=== PATIENT | male | born 1960 | race Caucasian/White ===

== ENCOUNTER 2017-06-22 07:31 | Outpatient (CLI) | payer OTHER ==
[~2017-06-22 07:31] MED LIST: ALPR0.254 PO; ATOR80TA76 PO; HYDR1TAB PO; METH4TAB PO; MONT10TA24 PO; OMEP40CA36 PO; PANT40TA2 PO; ROSU20TA PO; VALA500T PO
--- NOTE | 2017-06-22 09:17 | Diagnostic Imaging Report ---
PROCEDURE: MRI right joint upper extremity without contrast. Technique: Multiplanar, multisequence MR imaging of the right shoulder was performed without contrast. Comparison: None available. Indication: Chronic right shoulder pain which is progressively worsening. Findings: Rotator cuff: Supraspinatus and infraspinatus tendinopathy. There is low-grade focal partial-thickness interstitial tear of the conjoint insertional fibers of the supraspinatus and infraspinatus. The tear measures approximately 1 cm in the AP dimension. No significant tendon retraction. There is no associated atrophy of the supraspinatus or infraspinatus. The subscapularis has mild tendinopathy without superimposed tear. The teres minor is normal. Glenoid labrum: The anterior inferior labrum has has heterogeneous intrinsic signal and a somewhat truncated morphology which suggests tear. However, this is suboptimally evaluated on non-arthrogram imaging and due to patient motion artifact. Remainder of the glenoid labrum appears grossly normal on non-arthrogram imaging. Long head of biceps: Long head of biceps is normally positioned within the bicipital groove. The intracapsular segment is likely intact allowing for motion artifact. Bones and cartilage: Humeral head is normal in morphology without fracture or focal osseous lesion. No glenohumeral chondromalacia. The acromioclavicular joint is in normal alignment with degenerative capsular hypertrophy and degenerative subchondral edema on both sides of the joint. Soft tissues: No glenohumeral joint effusion. No MRI findings to suggest adhesive capsulitis. No fluid or inflammatory like signal within the subacromial/subdeltoid space to indicate bursitis. IMPRESSION: 1. Supraspinatus and infraspinatus tendinopathy with a superimposed low-grade partial-thickness interstitial tear of the conjoint insertional fibers. No rotator cuff muscle atrophy. 2. Potential tear of the anterior inferior glenoid labrum, although evaluation of the glenoid labrum is limited on this examination due to patient motion artifact and lack of intra-articular contrast. If the patient has symptoms of recurrent anterior instability, MR arthrogram could be performed to assess the labrum. 3. Osteoarthritis of the acromioclavicular joint has a moderate amount of bone marrow edema on both sides, which is likely degenerative in nature. Clinical correlation for focal tenderness of the AC joint is recommended. Dictated by: Dictated on workstation # [id number]
== END 2017-06-22 09:15 | disposition home or self-care (01) ==
LOC: RAD 07:31
PROVIDERS: ATTEND Orthopaedic Surgery
DX: S43.421A Sprain of right rotator cuff capsule, initial encounter (principal); M75.81 Other shoulder lesions, right shoulder; M19.011 Primary osteoarthritis, right shoulder; X58.XXXA Exposure to other specified factors, initial encounter; Y99.8 Other external cause status
CPT/HCPCS: 73221

== ENCOUNTER → 2018-02-11 | Outpatient (CLI) | payer BC ==
[2018-02-11 11:52] LABS: BUN/CREATININE RATIO 17; CREATININE SERUM 0.87 MG/DL (0.60-1.30); GFR ESTIMATED > 60
--- NOTE | 2018-02-11 12:11 | Diagnostic Imaging Report ---
INDICATION: Cough COMPARISON: None FINDINGS: Two views of the chest were obtained. Heart size is normal. The pulmonary vessels appear unremarkable. There is no pneumothorax, mediastinal widening or pleural fluid. The lungs are clear. The osseous structures appear unremarkable. IMPRESSION: Negative chest Dictated by: Dictated on workstation # [id number]
== END ==
LOC: RAD 11:11
PROVIDERS: ATTEND Otolaryngology Otolaryngology/Facial Plastic Surgery
DX: J38.5 Laryngeal spasm (principal); R05 Cough
CPT/HCPCS: 36415; 71046; 82565; 84520

== ENCOUNTER → 2018-02-15 | Outpatient (CLI) | payer BC, OTHER ==
[~2018-02-15] MED LIST changes: +IOHEXOL 350 MG/ML 100 ML (OMNIPAQUE 350) VIAL IV ONE; +NS 250 ML (IVPB) BAG IV ONE
--- NOTE | 2018-02-15 08:43 | Diagnostic Imaging Report ---
PROCEDURE: CT neck soft tissue with contrast. TECHNIQUE: Multiple contiguous axial images were obtained through the neck after the administration of contrast. INDICATION: Laryngeal spasm and cough There is mild prominence of adenoidal tissue and tonsillar pillars, however, no asymmetry or focal mass is identified. The airway appears to be widely patent. Larynx is also symmetric without evidence of lesion. Visualized trachea has a normal appearance. There is no evidence of thyroid gland abnormality. Submandibular salivary glands and parotid glands are unremarkable with fatty infiltration of the parotids. Visualized brain base is unremarkable. There is mild straightening of normal cervical lordosis without evidence of acute cervical spinal abnormality. IMPRESSION: No evidence of mass or obstructing lesion along the airway. Adenoidal and tonsillar tissue is prominent which may be due to lymphoid hyperplasia. Dictated by: Dictated on workstation # [id number]
== END ==
LOC: RAD 07:51
PROVIDERS: ATTEND Otolaryngology Otolaryngology/Facial Plastic Surgery
DX: J38.5 Laryngeal spasm (principal)
CPT/HCPCS: 70491

== ENCOUNTER → 2018-03-01 | Outpatient (CLI) | payer BC ==
[~2018-03-01] MED LIST changes: +FAMO-119 PO; +FENO145T2 PO; +FEXO1TAB40 PO; +FLUT9.9S NSEACH; +HYDR-3812 PO; +ICOS1CAP PO; -IOHEXOL 350 MG/ML 100 ML (OMNIPAQUE 350) VIAL IV ONE; -NS 250 ML (IVPB) BAG IV ONE; +PANT40TA3 PO; +RANI150T46 PO; +RT-ALBUTEROL SULF 2.5 MG/3 ML PRE-MIX VIAL INH ONE; +TADA5TAB2 PO; +UBID200C16 PO; +[UNRECOGNIZED DRUG - CODE] PO
== END ==
LOC: RT 11:18
PROVIDERS: ATTEND Otolaryngology Otolaryngology/Facial Plastic Surgery
DX: R05 Cough (principal); J38.5 Laryngeal spasm
CPT/HCPCS: 94060; 94726; 94729

== ENCOUNTER → 2018-03-02 | Outpatient (CLI) | payer BC ==
[~2018-03-02] MED LIST changes: -RT-ALBUTEROL SULF 2.5 MG/3 ML PRE-MIX VIAL INH ONE
== END ==
LOC: LAB 13:32
PROVIDERS: ATTEND Nurse Practitioner Family
DX: R05 Cough (principal)
CPT/HCPCS: 36415; 87798

== ENCOUNTER → 2018-03-04 | Outpatient (CLI) | payer BC ==
--- NOTE | 2018-03-04 11:03 | Diagnostic Imaging Report ---
PROCEDURE: CT chest without contrast. TECHNIQUE: Multiple contiguous axial images were obtained through the chest without the use of intravenous contrast. INDICATION: Chronic cough, congestion and throat spasms. Comparison limited to overlapped images obtained at an abdominal CT 01/25/2013. Lower cervical trachea and thoracic airway widely patent. The lungs are clear and well expanded. There is no infiltrate, failure, effusion or pneumothorax. There are no findings of edema. There is no lung mass. There is no thoracic lymphadenopathy. No evidence for an aneurysm. No acute soft tissue nor osseous chest wall pathology. There is no evidence for aspiration or other etiology of pneumonia. No bronchiectasis or air cyst. The visualized upper abdomen appeared nonacute. IMPRESSION: This is an unremarkable noncontrast enhanced CT chest. Dictated by: Dictated on workstation # [id number]
== END ==
LOC: RAD 10:11
PROVIDERS: ATTEND Otolaryngology Otolaryngology/Facial Plastic Surgery
DX: J38.5 Laryngeal spasm (principal); J30.2 Other seasonal allergic rhinitis; K21.9 Gastro-esophageal reflux disease without esophagitis; J39.2 Other diseases of pharynx
CPT/HCPCS: 71250

== ENCOUNTER → 2018-03-04 | Outpatient (CLI) | payer BC ==
--- NOTE | 2018-03-04 11:28 | Diagnostic Imaging Report ---
PROCEDURE: CT neck soft tissue without contrast. TECHNIQUE: Multiple contiguous axial images were obtained through the neck without the use of intravenous contrast. INDICATION: Chronic cough for one month and throat spasm. COMPARISON: Correlation is made with recent CT neck study from 02/15/2018. FINDINGS: Visualized intracranial structures are unremarkable. Posterior nasopharynx, oropharynx and larynx are unremarkable. Epiglottis is unremarkable. No thyroid mass is detected. The submandibular and parotid glands are symmetric bilaterally. The airway appears to be patent. Retropharyngeal tissues are unremarkable. No cervical adenopathy is detected. IMPRESSION: Unremarkable noncontrast CT of the neck. Dictated by: Dictated on workstation # [id number]
== END ==
LOC: RAD 10:52
PROVIDERS: ATTEND Otolaryngology Otolaryngology/Facial Plastic Surgery
DX: J38.6 Stenosis of larynx (principal); R05 Cough
CPT/HCPCS: 70490

== ENCOUNTER 2018-04-19 09:42 | Outpatient (CLI) | payer BC ==
[~2018-04-19] VITALS: Ht 180.3 cm; Wt 102.1 kg
[~2018-04-19 09:42] MED LIST changes: -FAMO-119 PO; -FENO145T2 PO; -FEXO1TAB40 PO; -FLUT9.9S NSEACH; -HYDR-3812 PO; -ICOS1CAP PO; -PANT40TA3 PO; -RANI150T46 PO; -TADA5TAB2 PO; -UBID200C16 PO; -[UNRECOGNIZED DRUG - CODE] PO
[2018-04-20] MEDS ORDERED: UBID200C16 PO (08:03)
[2018-04-20] MEDS ORDERED: ICOS1CAP PO (08:03)
[2018-04-20] MEDS ORDERED: FLUT9.9S NSEACH (08:03)
[2018-04-20] MEDS ORDERED: [UNRECOGNIZED DRUG - CODE] PO (08:03)
[2018-04-20] MEDS ORDERED: PANT40TA3 PO (08:03)
[2018-04-20] MEDS ORDERED: FAMO-119 PO (08:03)
[2018-04-20] MEDS ORDERED: RANI150T46 PO (08:03)
[2018-04-20] MEDS ORDERED: TADA5TAB2 PO (08:03)
[2018-04-20] MEDS ORDERED: FENO145T2 PO (08:03)
[2018-04-20] MEDS ORDERED: FEXO1TAB40 PO (08:03)
== END 2018-04-19 16:00 ==
LOC: PREOP 09:42
PROVIDERS: ATTEND Otolaryngology Otolaryngology/Facial Plastic Surgery
DX: Z01.818 Encounter for other preprocedural examination (principal); R04.0 Epistaxis

== ENCOUNTER 2018-04-22 06:30 | Day surgery (SDC) | payer BC ==
[~2018-04-22] VITALS: Ht 180.3 cm; Wt 102.1 kg
[~2018-04-22 06:30] MED LIST changes: +FAMO-119 PO; +FENO145T2 PO; +FEXO1TAB40 PO; +FLUT9.9S NSEACH; +ICOS1CAP PO; +PANT40TA3 PO; +RANI150T46 PO; +TADA5TAB2 PO; +UBID200C16 PO; +[UNRECOGNIZED DRUG - CODE] PO
[2018-04-22 06:50] VITALS: BP 136/97
[2018-04-22 07:13] LABS: BASOPHILS % (AUTO) 0 % (0-10); EOSINOPHILS # (AUTO) 0.2 10^3/uL (0.0-0.3); EOSINOPHILS % (AUTO) 1 % (0-10); HEMATOCRIT 50 % (40-54); HEMOGLOBIN 17.2 G/DL (13.3-17.7); LYMPHOCYTES # (AUTO) 4.8 X 10^3 (1.0-4.0); LYMPHOCYTES % (AUTO) 44 % (12-44); MEAN CORPUSCULAR HEMOGLOBIN 32 PG (25-34); MEAN CORPUSCULAR HGB CONC 35 G/DL (32-36); MEAN CORPUSCULAR VOLUME 91 FL (80-99); MEAN PLATELET VOLUME 11.2 FL (7.4-10.4); MONOCYTES # (AUTO) 0.9 X 10^3 (0.0-1.0); MONOCYTES % (AUTO) 8 % (0-12); NEUTROPHILS % (AUTO) 46 % (42-75); PLATELET COUNT 162 10^3/uL (130-400); RED BLOOD COUNT 5.44 10^6/uL (4.35-5.85); RED CELL DISTRIBUTION WIDTH 15.1 % (10.0-14.5); WHITE BLOOD COUNT 10.9 10^3/uL (4.3-11.0)
[2018-04-22] MEDS: LACTATED RINGERS 1,000 ML IV PRN ×2 (07:15→08:45)
[2018-04-22] MEDS ORDERED: FAMOTIDINE 20MG/2ML IV (PEPCID) ONE (07:31)
[2018-04-22 07:32] LABS: BUN/CREATININE RATIO 22; CALCIUM 9.6 MG/DL (8.5-10.1); CARBON DIOXIDE 20 MMOL/L (21-32); CHLORIDE 106 MMOL/L (98-107); CREATININE SERUM 0.83 MG/DL (0.60-1.30); GFR ESTIMATED > 60; GLUCOSE 95 MG/DL (70-105); POTASSIUM 4.1 MMOL/L (3.6-5.0); SODIUM 139 MMOL/L (135-145)
[2018-04-22] MEDS ORDERED: FAMOTIDINE 20MG/2ML IV (PEPCID) IV ONE (07:45)
[2018-04-22] MEDS ORDERED: COCAINE HCL 4% 2 ML SYR ONE (07:46)
[2018-04-22] MEDS ORDERED: BSS 15 ML ONE (07:46)
[2018-04-22] MEDS ORDERED: LIDOCAINE/EPI 1%-1:200,000 (XYLOCAINE) 10 ML VIAL ONE (07:46)
[2018-04-22] MEDS ORDERED: PHENYLEPHRINE 0.5% NASAL SPR (NEO-SYNEPHRINE) REG ONE (07:46)
[2018-04-22] MEDS ORDERED: fentaNYL INJECTION 100 MCG/2 ML AMP ONE (07:56)
[2018-04-22] MEDS ORDERED: MIDAZOLAM 2 MG/2 ML (VERSED) VIAL ONE (07:57)
[2018-04-22] MEDS ORDERED: MUPIROCIN 2% OINT 22 GM (BACTROBAN) TUBE ONE (08:01)
--- NOTE | 2018-04-22 08:17 | Progress Note-Pre Operative ---
Pre-Operative Progress Note H&P Reviewed The H&P was reviewed, patient examined and no changes noted. Date Seen by Provider: Apr 22, 2018 Time Seen by Provider: 07:30 Date H&P Reviewed: Apr 22, 2018 Time H&P Reviewed: 07:30 Pre-Operative Diagnosis: Recurrent Right Posterior Epistaxis MICHAEL GEORGE MD Apr 22, 2018 8:17 am
[2018-04-22] MEDS ORDERED: MEPERIDINE (DEMEROL) INJ 50 MG/ML IVP PRN (08:45)
[2018-04-22] MEDS ORDERED: morphine INJ 10 MG/ML 1ML (SYR OR VIAL) IVP PRN (08:45)
[2018-04-22] MEDS ORDERED: ONDANSETRON 4 MG/2 ML (SDV) Z0FRAN IVP PRN (08:45)
[2018-04-22] MEDS ORDERED: D5 1/2 NS W/KCL 20 MEQ/L 1,000 ML IV SCH (09:03)
--- NOTE | 2018-04-22 09:03 | Progress Note-Post Operative ---
Post-Operative Progess Note Surgeon (s)/Wet Process Miller Head Assistant (s) Surgeon MICHAEL GEORGE MD Wet Process Miller Head Assistant n/a Pre-Operative Diagnosis Recurrent Right Posterior Epistaxis Post-Operative Diagnosis same Post-Op Procedure Note Date of Procedure: Apr 22, 2018 Name of Procedure Performed: Endoscopic Repair of Right Posterior Epistaxis Description & Findings Description and Findings: n/a Anesthesia Type get Estimated Blood Loss minimal Packing none. Specimen(s) collected/removed none MICHAEL GEORGE MD Apr 22, 2018 9:03 am
[2018-04-22] MEDS ORDERED: HYDROcodone/APAP 5 MG/325 MG (LORTAB) TAB PO PRN (09:15)
[2018-04-22] MEDS ORDERED: ACETAMINOPHEN 325 MG TABLET/CAPLET (TYLENOL) PO PRN (09:15)
[2018-04-22] MEDS ORDERED: PHENYLEPHRINE 0.5% NASAL SPR (NEO-SYNEPHRINE) REG PRN (09:15)
[2018-04-22] MEDS ORDERED: HYDR-3812 PO (09:33)
[2018-04-22 09:55] VITALS: BP 145/69
[2018-04-22 10:25] VITALS: BP 125/77
[2018-04-22 10:30] VITALS: BP 125/77
== END 2018-04-22 10:40 | disposition home or self-care (01) ==
LOC: SDC 06:30
PROVIDERS: ATTEND Otolaryngology Otolaryngology/Facial Plastic Surgery
DX: R04.0 Epistaxis (principal); G47.33 Obstructive sleep apnea (adult) (pediatric); Z79.899 Other long term (current) drug therapy
CPT/HCPCS: 36415; 80048; 85025; 87081; 93005

== ENCOUNTER 2018-05-06 12:52 | Outpatient (RCR) | payer BC ==
[~2018-05-06 12:52] MED LIST changes: +HYDR-3812 PO
== END 2018-05-13 11:33 | disposition home or self-care (01) ==
PROVIDERS: ATTEND Otolaryngology
DX: J38.3 Other diseases of vocal cords (principal); J38.7 Other diseases of larynx; R05 Cough

== ENCOUNTER → 2020-01-30 | Outpatient (CLI) | payer BC ==
[~2020-01-30] MED LIST changes: +ACHD5005 PO; -HYDR-3812 PO; -MONT10TA24 PO; +MONT10TA26 PO; +OMEP40CA27 PO; -OMEP40CA36 PO; +RANI-613 PO; -RANI150T46 PO; -ROSU20TA PO; +ROSU20TA2 PO; -VALA500T PO; +VALA500T7 PO
[2020-01-30 13:20] LABS: BASOPHILS % (AUTO) 0 % (0-10); EOSINOPHILS % (AUTO) 0 % (0-10); HEMATOCRIT 49 % (40-54); HEMOGLOBIN 16.6 G/DL (13.3-17.7); LYMPHOCYTES # (AUTO) 6.8 X 10^3 (1.0-4.0); LYMPHOCYTES % (AUTO) 56 % (12-44); MEAN CORPUSCULAR HEMOGLOBIN 31 PG (25-34); MEAN CORPUSCULAR HGB CONC 34 G/DL (32-36); MEAN CORPUSCULAR VOLUME 92 FL (80-99); MEAN PLATELET VOLUME 11.3 FL (7.4-10.4); MONOCYTES # (AUTO) 0.5 X 10^3 (0.0-1.0); MONOCYTES % (AUTO) 4 % (0-12); NEUTROPHILS # (AUTO) 4.8 X 10^3 (1.8-7.8); NEUTROPHILS % (AUTO) 39 % (42-75); PLATELET COUNT 132 10^3/uL (130-400); RED CELL DISTRIBUTION WIDTH 14.6 % (10.0-14.5); WHITE BLOOD COUNT 12.2 10^3/uL (4.3-11.0)
[2020-01-30 14:02] LABS: ATYPICAL LYMPHOCYTES 15 %; LYMPHOCYTES % (MANUAL) 36 %; MONOCYTES % (MANUAL) 2 %; NEUTROPHILS % (MANUAL) 47 %
[2020-01-30 14:03] LABS: RBC MORPH NORMAL; SMUDGE CELLS MOD
== END ==
LOC: LAB 13:00
PROVIDERS: ATTEND Family Medicine
DX: D72.829 Elevated white blood cell count, unspecified (principal)
CPT/HCPCS: 36415; 85007; 85027

== ENCOUNTER 2020-03-14 09:16 | Outpatient (RCR) | payer BC ==
[2020-02-28 13:59] LABS: BASOPHILS % (AUTO) 0 % (0-10); EOSINOPHILS # (AUTO) 0.1 10^3/uL (0.0-0.3); EOSINOPHILS % (AUTO) 1 % (0-10); HEMATOCRIT 49 % (40-54); HEMOGLOBIN 16.5 G/DL (13.3-17.7); LYMPHOCYTES # (AUTO) 7.1 X 10^3 (1.0-4.0); LYMPHOCYTES % (AUTO) 58 % (12-44); MEAN CORPUSCULAR HEMOGLOBIN 31 PG (25-34); MEAN CORPUSCULAR HGB CONC 34 G/DL (32-36); MEAN CORPUSCULAR VOLUME 92 FL (80-99); MEAN PLATELET VOLUME 11.1 FL (7.4-10.4); MONOCYTES # (AUTO) 0.6 X 10^3 (0.0-1.0); MONOCYTES % (AUTO) 5 % (0-12); NEUTROPHILS # (AUTO) 4.5 X 10^3 (1.8-7.8); NEUTROPHILS % (AUTO) 37 % (42-75); PLATELET COUNT 151 10^3/uL (130-400); RED CELL DISTRIBUTION WIDTH 14.1 % (10.0-14.5); WHITE BLOOD COUNT 12.3 10^3/uL (4.3-11.0)
[2020-02-28 14:23] LABS: ALANINE AMINOTRANSFERASE 43 U/L (0-55); ALBUMIN 4.5 GM/DL (3.2-4.5); ALKALINE PHOSPHATASE 47 U/L (40-136); BILIRUBIN,TOTAL 0.6 MG/DL (0.1-1.0); BUN/CREATININE RATIO 14; CALCIUM 9.6 MG/DL (8.5-10.1); CARBON DIOXIDE 23 MMOL/L (21-32); CHLORIDE 107 MMOL/L (98-107); CREATININE SERUM 1.19 MG/DL (0.60-1.30); GFR ESTIMATED > 60; GLUCOSE 123 MG/DL (70-105); POTASSIUM 4.1 MMOL/L (3.6-5.0); SODIUM 138 MMOL/L (135-145); TOTAL PROTEIN 7.1 GM/DL (6.4-8.2)
== END 2020-05-28 | disposition home or self-care (01) ==
LOC: ONC 09:16
PROVIDERS: ATTEND Internal Medicine Hematology & Oncology
DX: D72.829 Elevated white blood cell count, unspecified (principal)
CPT/HCPCS: 80053; 82784 ×3; 83615; 83883; 84165; 85025; 88184; 88185; G0463; 36415; 84155; 99213

== ENCOUNTER → 2020-03-28 | Outpatient (CLI) | payer BC ==
[~2020-03-28] MED LIST changes: +CATHETER FLUSH 10 ML SYR IV PRN; +HOLD METFORMIN - RECEIVED CONTRAST 20 ML VIAL IV SCH; +IOHEXOL 350 MG/ML 100 ML (OMNIPAQUE 350) VIAL IV ONE; +NS 100 ML (IVPB) BAG IV ONE
--- NOTE | 2020-03-28 09:27 | Diagnostic Imaging Report ---
PROCEDURE: CT chest with contrast, CT abdomen and pelvis with and without contrast. TECHNIQUE: Pre and post intravenous contrast axial imaging of the abdomen and pelvis and post contrast axial imaging of the chest were performed. Auto Exposure Controls were utilized during the CT exam to meet ALARA standards for radiation dose reduction. INDICATION: Chronic lymphocytic leukemia. Correlation is made with prior CT chest from 03/04/[address] abdomen and pelvis study from 01/25/2013. CT CHEST: No axillary lymphadenopathy is identified. No definite mediastinal or hilar lymphadenopathy is detected. No pericardial or pleural fluid is seen. There is some mild pleural thickening bilaterally. No pulmonary infiltrates or masses are seen. IMPRESSION: Unremarkable CT of the chest with contrast. No thoracic lymphadenopathy or pulmonary mass is detected. CT abdomen and pelvis: The liver demonstrates diffuse low density consistent with hepatic steatosis. No discrete liver mass is detected. Gallbladder is unremarkable. No biliary ductal dilatation is seen. The pancreas and spleen are unremarkable. No adrenal mass is identified. Kidneys are unremarkable. There is no hydronephrosis. Aorta is non-aneurysmal. No central retroperitoneal or mesenteric lymphadenopathy is seen. The small and large bowel loops are normal caliber. There is diverticulosis of the sigmoid and descending colon but no evidence of acute diverticulitis. Bladder is decompressed. Prostate is unremarkable. There are fat-containing inguinal hernias bilaterally. No inguinal or iliac lymphadenopathy is identified. IMPRESSION: 1. Hepatic steatosis. 2. Uncomplicated diverticulosis. 3. No evidence of abdominal or pelvic lymphadenopathy. Dictated by: Dictated on workstation # [id number]
--- NOTE | 2020-03-28 09:31 | Diagnostic Imaging Report ---
PROCEDURE: CT neck soft tissue with contrast. TECHNIQUE: Multiple contiguous axial images were obtained through the neck after the administration of contrast. Auto Exposure Controls were utilized during the CT exam to meet ALARA standards for radiation dose reduction. INDICATION: Leukemia Study compared with nonenhanced soft tissue neck CT 03/04/2019. No pathologically enlarged, abnormally numerous nor morphologically distorted cervical lymph nodes are found. The nasopharynx, oropharynx and hypopharynx unremarkable. The airway patent. The infra laryngeal trachea patent. The thoracic inlet and visualized pulmonary apices and superior mediastinum unremarkable. Supraclavicular fossa unremarkable. Carotid arteries showed no evidence for hemodynamically significant stenosis. No fluid collection. No inflammatory process. No bony destruction. No change from the comparison. IMPRESSION: No mass, adenopathy, airway embarrassment or acute abnormalities found. Dictated by: Dictated on workstation # [id number]
== END ==
LOC: RAD 08:12
PROVIDERS: ATTEND Internal Medicine Hematology & Oncology
DX: D72.829 Elevated white blood cell count, unspecified (principal)
CPT/HCPCS: 70491; 71260; 74178

== ENCOUNTER → 2020-09-13 | Outpatient (CLI) | payer BC ==
[~2020-09-13] MED LIST changes: +ALPR.25T PO; -ALPR0.254 PO; -CATHETER FLUSH 10 ML SYR IV PRN; -HOLD METFORMIN - RECEIVED CONTRAST 20 ML VIAL IV SCH; -IOHEXOL 350 MG/ML 100 ML (OMNIPAQUE 350) VIAL IV ONE; -NS 100 ML (IVPB) BAG IV ONE; -PANT40TA3 PO; +PANT40TA52 PO
[2020-09-13 10:26] LABS: BASOPHILS # (AUTO) 0.1 10^3/uL (0.0-0.1); BASOPHILS % (AUTO) 1 % (0-10); EOSINOPHILS # (AUTO) 0.2 10^3/uL (0.0-0.3); EOSINOPHILS % (AUTO) 1 % (0-10); HEMATOCRIT 50 % (40-54); HEMOGLOBIN 16.9 g/dL (13.3-17.7); LYMPHOCYTES # (AUTO) 9.2 10^3/uL (1.0-4.0); LYMPHOCYTES % (AUTO) 65 % (12-44); MEAN CORPUSCULAR HEMOGLOBIN 33 pg (25-34); MEAN CORPUSCULAR HGB CONC 34 g/dL (32-36); MEAN CORPUSCULAR VOLUME 96 fL (80-99); MONOCYTES # (AUTO) 0.7 10^3/uL (0.0-1.0); MONOCYTES % (AUTO) 5 % (0-12); NEUTROPHILS % (AUTO) 28 % (42-75); PLATELET COUNT 151 10^3/uL (130-400); WHITE BLOOD COUNT 14.2 10^3/uL (4.3-11.0)
[2020-09-13 10:48] LABS: ALANINE AMINOTRANSFERASE 70 U/L (0-55); ALBUMIN 4.3 GM/DL (3.2-4.5); ALKALINE PHOSPHATASE 49 U/L (40-136); BILIRUBIN,TOTAL 0.5 MG/DL (0.1-1.0); BUN/CREATININE RATIO 12; CALCIUM 9.4 MG/DL (8.5-10.1); CARBON DIOXIDE 22 MMOL/L (21-32); CHLORIDE 103 MMOL/L (98-107); CREATININE SERUM 1.13 MG/DL (0.60-1.30); GFR ESTIMATED > 60; GLUCOSE 120 MG/DL (70-105); POTASSIUM 4.5 MMOL/L (3.6-5.0); SODIUM 137 MMOL/L (135-145); TOTAL PROTEIN 8.1 GM/DL (6.4-8.2)
== END ==
LOC: EDSTATUS 05-29 16:25 → ONC 10:16
PROVIDERS: ATTEND Internal Medicine Hematology & Oncology
DX: D72.820 Lymphocytosis (symptomatic) (principal)
CPT/HCPCS: 80053; 83615; 85025; G0463; 99213

== ENCOUNTER → 2021-06-11 | Outpatient (CLI) | payer BC ==
[~2021-06-11] MED LIST changes: -MONT10TA26 PO; +MONT10TA32 PO; -OMEP40CA27 PO; +OMEP40CA6 PO
--- NOTE | 2021-06-11 13:46 | Diagnostic Imaging Report ---
PROCEDURE: US right lower extremity venous. TECHNIQUE: Multiple Real-time grayscale images were obtained over the right lower extremity in various projections. Additional spectral analysis and color Doppler duplex images were also obtained. INDICATION: Right leg pain. FINDINGS: There is no evidence of right lower extremity DVT. The right lower extremity deep venous system shows normal compressibility with normal response to augmentation and Valsalva. No fluid collection or mass is detected. IMPRESSION: No evidence of right lower extremity DVT. Dictated by: Dictated on workstation # [id number]
== END ==
LOC: RAD 11:00
PROVIDERS: ATTEND Physician Assistant
DX: M79.604 Pain in right leg (principal); M79.89 Other specified soft tissue disorders

== ENCOUNTER 2021-07-12 11:49 | Outpatient (CLI) | payer BC ==
[~2021-07-12] VITALS: Ht 180.3 cm; Wt 117.9 kg
[2021-07-12 11:32] VITALS: BP 128/77
[2021-07-12] MEDS ORDERED: ONDANSETRON 4 MG/2 ML (SDV) Z0FRAN IV PRN (12:00)
[2021-07-12] MEDS ORDERED: ACETAMINOPHEN 500 MG TAB (TYLENOL) PO PRN (12:00)
[2021-07-12] MEDS ORDERED: EPINEPHrine INJECTION 1 MG/ML AMP IM PRN (12:00)
[2021-07-12] MEDS ORDERED: diphenhydrAMINE 50 MG/ML INJ (BENADRYL) IV PRN (12:00)
[2021-07-12] MEDS ORDERED: CASIRIVIMAB/IMDEVIMAB 1,200 MG in NS (IVPB) 250 ML IV ONE (12:00)
[2021-07-12 12:59] VITALS: BP 126/86
== END 2021-07-12 12:35 | disposition home or self-care (01) ==
LOC: INFUSION 11:49
PROVIDERS: ATTEND Physician Assistant
DX: Z23 Encounter for immunization (principal); U07.1 COVID-19

== ENCOUNTER → 2021-08-29 | Outpatient (CLI) | payer BC | LOC: ONC 10:55 | PROVIDERS: ATTEND Internal Medicine Hematology & Oncology | DX: D72.820 Lymphocytosis (symptomatic) (principal); E78.00 Pure hypercholesterolemia, unspecified; K21.9 Gastro-esophageal reflux disease without esophagitis; E66.9 Obesity, unspecified | CPT/HCPCS: 99213 ==